=== PATIENT | female | born 1960 | race Hispanic/Latino ===

== ENCOUNTER 2021-06-16 19:15 | Emergency (ER) | payer OTHER ==
[~2021-06-16] VITALS: Ht 157.5 cm; Wt 77.1 kg
[2021-06-16] MEDS ORDERED: 0.9%NACL 1000ML 1,000 ML IV ONE (19:30)
[2021-06-16 19:52] LABS: BASOPHILS % (AUTO) 0.2 % (0.0-5.0); HEMATOCRIT 41.9 % (36-48); LYMPHOCYTES % (AUTO) 8.6 % (21.0-51.0); MEAN CORPUSCULAR HEMOGLOBIN 30.5 pg (27.0-33.0); MEAN CORPUSCULAR HGB CONC 32.9 g/dL (32.0-36.0); MEAN CORPUSCULAR VOLUME 92.5 fL (79-99); MONOCYTES % (AUTO) 8.6 % (3.0-13.0); NEUTROPHILS % (AUTO) 82.4 % (40.0-77.0); PLATELET COUNT (AUTO) 149 K/uL (130-400); RED BLOOD CELL COUNT(AUTO) 4.53 MIL/uL (4.00-5.50); WHITE BLOOD COUNT (AUTO) 5.5 K/uL (4.8-10.8)
[2021-06-16 19:58] LABS: APPEARANCE,URINE CLEAR (CLEAR); BILIRUBIN,URINE SMALL (NEGATIVE); COLOR,URINE YELLOW (YELLOW); GLUCOSE, URINE (UA) NEGATIVE (NEGATIVE); KETONES,URINE >=80 mg/dL (NEGATIVE); LEUKOCYTE ESTERASE ,URINE NEGATIVE (NEGATIVE); NITRATE,URINE NEGATIVE (NEGATIVE); OCCULT BLOOD,URINE TRACE-LYSED (NEGATIVE); PROTEIN,URINE TRACE mg/dL (NEGATIVE); UROBILINOGEN,URINE 0.2 mg/dL (0.2-1.0)
[2021-06-16 20:00] LABS: CREATININE 0.7 mg/dL (0.5-1.5); POTASSIUM 4.2 mmol/L (3.5-5.1)
[2021-06-16 20:09] LABS: ALBUMIN 3.8 g/dL (3.5-5.0); BILIRUBIN,TOTAL 0.5 mg/dL (0.2-1.0); TOTAL PROTEIN, SERUM 7.5 g/dL (6.0-8.3)
[2021-06-16 20:13] LABS: BACTERIA,URINE Few /HPF (None Seen); MUCUS,URINE Moderate LPF (None Seen); SQUAMOUS EPITHELIAL CELL,UR Few /HPF (0-2)
[2021-06-16] MEDS ORDERED: ONDANSETRON 4MG INJ ONE (20:43)
[2021-06-16] MEDS ORDERED: FAMOTIDINE 20MG VIAL IV ONE ×2 (20:44→21:00)
[2021-06-16] MEDS ORDERED: ACETAMINOPHEN 500 MG TABLET ONE (20:44)
[2021-06-16] MEDS ORDERED: BENZ-39 PO (20:47)
[2021-06-16] MEDS ORDERED: ACET-66 PO (20:47)
[2021-06-16] MEDS ORDERED: FAMO-136 PO (20:47)
[2021-06-16] MEDS ORDERED: ONDA4TAB10 PO (20:47)
[2021-06-16] MEDS ORDERED: ONDANSETRON 4MG INJ IVP ONE (21:00)
[2021-06-16] MEDS ORDERED: ACETAMINOPHEN 500 MG TABLET PO ONE (21:00)
[2021-06-16 21:47] VITALS: BP 135/60
== END 2021-06-16 21:55 | disposition home or self-care (01) ==
LOC: EDH 19:15
DX: J10.1 Influenza due to other identified influenza virus with other respiratory manifestations (principal); Z20.822 Contact with and (suspected) exposure to COVID-19; Z79.899 Other long term (current) drug therapy; Z90.89 Acquired absence of other organs; Z98.890 Other specified postprocedural states
CPT/HCPCS: 36415; 80053; 81001; 83690; 84484; 85025; 87635; 87804 ×2; 93005; 96361; 96374; 96375; 99284; C9803; J2405; J3490; J7030

== ENCOUNTER 2021-11-29 03:55 | Emergency (ER) | payer OTHER ==
[~2021-11-29] VITALS: Ht 157.5 cm; Wt 73.5 kg
[~2021-11-29 03:55] MED LIST: ACET-66 PO; BENZ-39 PO; FAMO-136 PO; ONDA4TAB10 PO
[2021-11-29 04:31] LABS: BASOPHILS % (AUTO) 0.2 % (0.0-5.0); HEMATOCRIT 41.7 % (36-48); LYMPHOCYTES % (AUTO) 10.6 % (21.0-51.0); MEAN CORPUSCULAR HEMOGLOBIN 30.9 pg (27.0-33.0); MEAN CORPUSCULAR HGB CONC 33.3 g/dL (32.0-36.0); MEAN CORPUSCULAR VOLUME 92.7 fL (79-99); MONOCYTES % (AUTO) 11.7 % (3.0-13.0); NEUTROPHILS % (AUTO) 77.3 % (40.0-77.0); PLATELET COUNT (AUTO) 148 K/uL (130-400); RED CELL DISTRIBUTION WIDTH 13.2 % (11.0-15.5); WHITE BLOOD COUNT (AUTO) 5.8 K/uL (4.8-10.8)
[2021-11-29 04:39] LABS: CREATININE 0.8 mg/dL (0.5-1.5); POTASSIUM 3.9 mmol/L (3.5-5.1)
[2021-11-29 04:40] LABS: APPEARANCE,URINE CLEAR (CLEAR); BILIRUBIN,URINE NEGATIVE (NEGATIVE); COLOR,URINE YELLOW (YELLOW); GLUCOSE, URINE (UA) NEGATIVE (NEGATIVE); KETONES,URINE 10 mg/dL (NEGATIVE); LEUKOCYTE ESTERASE ,URINE 75 Leu/uL (NEGATIVE); NITRATE,URINE NEGATIVE (NEGATIVE); OCCULT BLOOD,URINE NEGATIVE (NEGATIVE); PROTEIN,URINE 30 mg/dL (NEGATIVE); UROBILINOGEN,URINE 0.2 mg/dL (0.2-1.0)
[2021-11-29 04:43] LABS: ALBUMIN 3.9 g/dL (3.5-5.0); TOTAL PROTEIN, SERUM 7.2 g/dL (6.0-8.3)
[2021-11-29 04:45] LABS: BACTERIA,URINE RARE /HPF (None Seen); MUCUS,URINE FEW LPF (None Seen); SQUAMOUS EPITHELIAL CELL,UR RARE /HPF (0-2)
[2021-11-29] MEDS ORDERED: ONDANSETRON 4MG INJ IVP ONE (05:00)
[2021-11-29] MEDS ORDERED: CEFTRIAXONE 1G VIAL IVP ONE (05:30)
[2021-11-29] MEDS ORDERED: ONDA4TAB10 PO (06:47)
[2021-11-29] MEDS ORDERED: MACR100 PO (06:47)
[2021-11-29 07:04] VITALS: BP 134/75
== END 2021-11-29 07:12 | disposition home or self-care (01) ==
LOC: EDH 03:55
DX: U07.1 COVID-19 (principal); R11.10 Vomiting, unspecified; E86.0 Dehydration; N30.00 Acute cystitis without hematuria; Z79.899 Other long term (current) drug therapy; Z90.89 Acquired absence of other organs; Z90.49 Acquired absence of other specified parts of digestive tract; Z98.890 Other specified postprocedural states
CPT/HCPCS: 99284; 96374; 87635; 96375; 80053; 83690; 85025; 87088; 87804 ×2; 81001; 36415; 93005; C9803; J0696; J2405

== ENCOUNTER 2022-05-16 00:36 | Emergency (ER) | payer OTHER ==
[~2022-05-16] VITALS: Ht 157.5 cm; Wt 76.7 kg
[~2022-05-16 00:36] MED LIST changes: +MACR100 PO
[2022-05-16] MEDS ORDERED: DICYCLOMINE HCL 10 MG/5 ML ML PO ONE (01:00)
[2022-05-16] MEDS ORDERED: 0.9%NACL 1000ML 1,000 ML IV ONE (01:00)
[2022-05-16] MEDS ORDERED: LIDOCAINE HCL 2% VISCOUS 15 ML UDCUP PO ONE (01:00)
[2022-05-16] MEDS ORDERED: PANTOPRAZOLE 40 MG/VIAL IV ONE (01:00)
[2022-05-16] MEDS ORDERED: MAG/ALUM/SIMETH 30 ML UDCUP PO ONE (01:00)
[2022-05-16 01:07] LABS: BASOPHILS % (AUTO) 0.1 % (0.0-5.0); EOSINOPHILS % (AUTO) 0.3 % (0.0-8.0); HEMATOCRIT 41.1 % (36-48); LYMPHOCYTES % (AUTO) 20.5 % (21.0-51.0); MEAN CORPUSCULAR HGB CONC 33.8 g/dL (32.0-36.0); MEAN CORPUSCULAR VOLUME 91.7 fL (79-99); MONOCYTES % (AUTO) 6.9 % (3.0-13.0); NEUTROPHILS % (AUTO) 71.7 % (40.0-77.0); PLATELET COUNT (AUTO) 176 K/uL (130-400); RED BLOOD CELL COUNT(AUTO) 4.48 MIL/uL (4.00-5.50); RED CELL DISTRIBUTION WIDTH 13.4 % (11.0-15.5); WHITE BLOOD COUNT (AUTO) 8.6 K/uL (4.8-10.8)
[2022-05-16 01:18] LABS: CREATININE 0.8 mg/dL (0.5-1.5); POTASSIUM 4.5 mmol/L (3.5-5.1)
[2022-05-16 01:23] LABS: ALBUMIN 4.1 g/dL (3.5-5.0); TOTAL PROTEIN, SERUM 7.4 g/dL (6.0-8.3)
[2022-05-16] MEDS ORDERED: IOHEXOL 350 MG/ML 100ML INFUS..BTL IV ONE (02:36)
[2022-05-16] MEDS ORDERED: OXYC-38 PO (03:32)
[2022-05-16] MEDS ORDERED: ONDA4TAB10 PO (03:32)
[2022-05-16 03:46] LABS: CHOLESTEROL 226 mg/dL (<200); HDL CHOLESTEROL 81 mg/dL (35-85); LDL DIRECT 120 mg/dL (0-99); TRIGLYCERIDES 108 mg/dL (30-200)
[2022-05-16 04:16] VITALS: BP 120/72
== END 2022-05-16 04:18 | disposition home or self-care (01) ==
LOC: EDH 00:36
DX: K85.90 Acute pancreatitis without necrosis or infection, unspecified (principal); Z90.49 Acquired absence of other specified parts of digestive tract; Z90.710 Acquired absence of both cervix and uterus
CPT/HCPCS: 99285; 74177; 96374; 96361; 80061; 84484; 80053; 83690; 85025; 36415; 93005; J7030; C9113; Q9967